=== PATIENT | female | born 1975 | race Caucasian/White ===

== ENCOUNTER 2016-08-08 01:10 | Emergency (ER) | payer BC, OTHER, SELFPAY ==
[2016-08-08] MEDS ORDERED: AMMONIA AROMATIC INHALANT (FLOOR STOCK) As Ordered ONE (04:13)
[2016-08-08] MEDS ORDERED: IBUPROFEN 800 MG TAB PO ONE (06:15)
[2016-08-08 06:56] VITALS: BP 103/68
--- NOTE | 2016-08-08 07:57 | REP ---
Left shoulder three views : There is no fracture or dislocation. Mineralization and joint spaces are normal. There are no calcifications or foreign bodies. Impression: Negative left shoulder . Signed by Merlin Zhou MD 08/08/2016 07:49 A
--- NOTE | 2016-08-08 07:59 | REP ---
Right foot four views : There is no fracture or dislocation. Mineralization and joint spaces are normal. There are no calcifications or foreign bodies. Impression: Negative right foot Calcaneal plantar and Achilles spurs are incidentally noted . Signed by Merlin Zhou MD 08/08/2016 07:50 A
== END 2016-08-08 07:02 | disposition home or self-care (01) ==
LOC: M ED 02:17
DX: S90.31XA Contusion of right foot, initial encounter (principal); S43.402A Unspecified sprain of left shoulder joint, initial encounter; X58.XXXA Exposure to other specified factors, initial encounter; Y92.89 Other specified places as the place of occurrence of the external cause; Y93.89 Activity, other specified; Y99.0 Civilian activity done for income or pay

== ENCOUNTER 2016-09-18 07:45 | Emergency (ER) | payer BC, OTHER ==
[~2016-09-18] VITALS: Ht 167.6 cm; Wt 94.8 kg
[2016-09-18] MEDS ORDERED: BUSP5TA PO (07:58)
[2016-09-18 09:00] LABS: BASO % 0.4 % (0.0-1.0); EOS # 0.1 K/mm3 (0.0-0.50); EOS % 1.1 % (0.0-3.0); LARGE UNSTAINED CELL # 0.1 K/mm3 (0.0-0.4); LARGE UNSTAINED CELL % 1.4 % (0.0-4.0); LYMPH # 1.7 K/mm3 (1.5-4.5); LYMPH % 22.2 % (24.0-44.0); MEAN CORPUSCULAR HEMOGLOBIN 31.3 pg (27.0-33.0); MEAN CORPUSCULAR HGB CONC 34.4 g/dl (32.0-36.5); MEAN CORPUSCULAR VOLUME 90.8 fl (80.0-96.0); MONO # 0.5 K/mm3 (0.0-0.8); MONO % 6.8 % (0.0-5.0); NEUTROPHILS % 68.1 % (36.0-66.0); PLATELET COUNT, AUTOMATED 257 k/mm3 (150-450); RED CELL DISTRIBUTION WIDTH 13.1 % (11.5-14.5); WHITE BLOOD COUNT 7.3 K/mm3 (4.0-10.0)
[2016-09-18 09:24] LABS: CONTROL LINE HCG INT CTR LINE PRESENT
[2016-09-18 09:26] LABS: ALBUMIN/GLOBULIN RATIO 1.21 (1.00-1.93); ALKALINE PHOSPHATASE 102 U/L (45-117); ALT/SGPT 22 U/L (12-78); AMYLASE 31 U/L (25-115); ANION GAP 8 MEQ/L (8-16); AST/SGOT 14 U/L (15-37); BILIRUBIN,DIRECT 0.2 MG/DL (0.0-0.2); BILIRUBIN,TOTAL 0.6 MG/DL (0.2-1.0); BLOOD UREA NITROGEN 11 MG/DL (7-18); CALCIUM LEVEL 8.6 MG/DL (8.5-10.1); CARBON DIOXIDE LEVEL 26 MEQ/L (21-32); CHLORIDE LEVEL 107 MEQ/L (98-107); CREATININE FOR GFR 0.76 MG/DL (0.55-1.02); GLOMERULAR FILTRATION RATE > 60.0 (>58); GLUCOSE, FASTING 97 MG/DL (70-105); POTASSIUM SERUM 3.9 MEQ/L (3.5-5.1); SODIUM LEVEL 141 MEQ/L (136-145); TOTAL PROTEIN 7.3 GM/DL (6.4-8.2)
[2016-09-18] MEDS ORDERED: ACETAMINOPHEN 325 MG TAB PO ONE (09:45)
[2016-09-18] MEDS ORDERED: ZOFR4TAB3 PO (09:48)
[2016-09-18 09:53] VITALS: BP 125/69
== END 2016-09-18 09:56 | disposition home or self-care (01) ==
LOC: M ED 08:58
DX: R19.7 Diarrhea, unspecified (principal); R11.0 Nausea; R10.12 Left upper quadrant pain; F41.9 Anxiety disorder, unspecified; Z90.79 Acquired absence of other genital organ(s); Z90.89 Acquired absence of other organs

== ENCOUNTER 2016-12-12 08:34 | Outpatient (CLI) | payer BC ==
[~2016-12-12] VITALS: Ht 167.6 cm; Wt 95.3 kg
[~2016-12-12 08:34] MED LIST: BUSP5TA PO; LEXA1TAB PO; LIDOCAINE 2% INJ 100 MG/5 ML SDV (FOR ANES.) As Ordered ONE; PROPOFOL 200 MG/20 ML VIAL As Ordered ONE; ZOFR4TAB3 PO
[2016-12-12] MEDS ORDERED: NS 1,000 ML IV SCH (08:45)
--- NOTE | 2016-12-12 09:28 | ROOR ---
Patient Name: Leticia Villalta Procedure Date: 12/12/2016 9:07 AM Date of : 1975 Age: 41 Room: [facility] Gender: Female Note Status: Finalized Procedure: Total Colonoscopy to Cecum + Cold Snare Polypectomy Indications: Screening in patient at increased risk: Colorectal cancer in mother before age 60 Providers: Collin Martin MD Referring MD: Maxi Rodriguez MD Requesting Provider: Medicines: Monitored Anesthesia Care Complications: No immediate complications. Procedure: Pre-Anesthesia Assessment: - The heart rate, respiratory rate, oxygen saturations, blood pressure, adequacy of pulmonary ventilation, and response to care were monitored throughout the procedure. The Colonoscope was introduced through the anus and advanced to the cecum, identified by appendiceal orifice and ileocecal valve. The colonoscopy was performed without difficulty. The patient tolerated the procedure well. The quality of the bowel preparation was good. Findings: The perianal and digital rectal examinations were normal. Non-bleeding internal hemorrhoids were found during retroflexion. The hemorrhoids were small and Grade I (internal hemorrhoids that do not prolapse). A small polyp was found in the cecum. The polyp was sessile. The polyp was removed with a cold snare. Resection and retrieval were complete. The exam was otherwise without abnormality on direct and retroflexion views. Impression: - Non-bleeding internal hemorrhoids. - One small polyp in the cecum, removed with a cold snare. Resected and retrieved. - The examination was otherwise normal on direct and retroflexion views. - The exam was otherwise normal to the cecum. Recommendation: - Patient has a contact number available for emergencies. The signs and symptoms of potential delayed complications were discussed with the patient. Return to normal activities tomorrow. Written discharge instructions were provided to the patient. - High fiber diet. - Discharge patient to home. - Continue present medications. - Await pathology results. - Telephone GI clinic for pathology results in 1 week. - Return to referring physician. - Repeat colonoscopy in 5 years for surveillance based on pathology results. - Return to referring physician. - The findings and recommendations were discussed with the patient's family. Collin Martin MD Collin Martin MD 12/12/2016 9:28:12 AM This report has been signed electronically. Number of Addenda: 0 Note Initiated On: 12/12/2016 9:07 AM Estimated Blood Loss: Estimated blood loss: none.
[2016-12-12 09:50] VITALS: BP 118/87
== END 2016-12-12 10:15 | disposition home or self-care (01) ==
LOC: M OPP 08:34
PROVIDERS: ATTEND Internal Medicine Gastroenterology
DX: Z12.11 Encounter for screening for malignant neoplasm of colon (principal); D12.0 Benign neoplasm of cecum; K64.0 First degree hemorrhoids; Z80.0 Family history of malignant neoplasm of digestive organs; M54.9 Dorsalgia, unspecified; G43.909 Migraine, unspecified, not intractable, without status migrainosus; F41.9 Anxiety disorder, unspecified; F32.9 Major depressive disorder, single episode, unspecified; R06.83 Snoring; Z98.1 Arthrodesis status; Z88.8 Allergy status to other drugs, medicaments and biological substances; Z79.899 Other long term (current) drug therapy

== ENCOUNTER 2017-07-29 19:43 | Emergency (ER) | payer BC ==
[2017-07-29 22:20] LABS: KETONE, URINE AUTO RFX NEGATIVE (NEGATIVE); LEUKOCYTE ESTERASE UR AUTO RFX NEGATIVE (NEGATIVE); MUCUS, URINE RFX SMALL (NEGATIVE); NITRITE, URINE AUTO RFX NEGATIVE (NEGATIVE); RBC, URINE AUTO RFX 0 /HPF (0-3); SPECIFIC GRAVITY UR AUTO RFX 1.023 (1.002-1.035); SQUAM EPITHELIAL CELL UR AURFX 1 /HPF (0-6); WBC, URINE AUTO RFX 1 /HPF (0-3)
[2017-07-29 23:01] LABS: BASO % 0.5 % (0.0-1.0); HEMOGLOBIN 13.2 g/dl (12.0-16.0); IMMATURE GRANULOCYTE % 0.2 % (0-3.0); LYMPH # 2.1 10^3/uL (1.5-4.5); LYMPH % 34.5 % (24.0-44.0); MEAN CORPUSCULAR HEMOGLOBIN 30.6 pg (27.0-33.0); MEAN CORPUSCULAR VOLUME 92.6 fl (80.0-96.0); MONO # 0.8 10^3/uL (0.0-0.8); MONO % 12.7 % (0.0-5.0); NEUTROPHILS # 3.2 10^3/uL (1.8-7.7); NEUTROPHILS % 52.1 % (36.0-66.0); PLATELET COUNT, AUTOMATED 267 10^3/uL (150-450); RED BLOOD COUNT 4.32 10^6/uL (4.00-5.40); WHITE BLOOD COUNT 6.1 10^3/uL (4.0-10.0)
[2017-07-29] MEDS: ONDANSETRON 4MG/2ML VIAL (J2405) IV (23:02)
[2017-07-29] MEDS: NS 1,000 ML IV (23:02)
[2017-07-29] MEDS: MORPHINE 4 MG/ML 1ML VIAL (J2270) IV (23:02)
[2017-07-29 23:08] LABS: URINE PREG TEST NEGATIVE (NEGATIVE)
[2017-07-29 23:09] LABS: CONTROL LINE UCG INT CTR LINE PRESENT
[2017-07-29 23:26] LABS: ALBUMIN/GLOBULIN RATIO 0.95 (1.00-1.93); ALKALINE PHOSPHATASE 93 U/L (45-117); ALT/SGPT 24 U/L (12-78); ANION GAP 6 MEQ/L (8-16); AST/SGOT 19 U/L (7-37); BILIRUBIN,TOTAL 0.4 MG/DL (0.2-1.0); BLOOD UREA NITROGEN 11 MG/DL (7-18); CALCIUM LEVEL 8.8 MG/DL (8.5-10.1); CARBON DIOXIDE LEVEL 28 MEQ/L (21-32); CHLORIDE LEVEL 106 MEQ/L (98-107); CREATININE FOR GFR 0.73 MG/DL (0.55-1.30); GLOMERULAR FILTRATION RATE > 60.0 (>58); GLUCOSE, FASTING 83 MG/DL (70-100); POTASSIUM SERUM 3.6 MEQ/L (3.5-5.1); SODIUM LEVEL 140 MEQ/L (136-145); TOTAL PROTEIN 8.2 GM/DL (6.4-8.2)
[2017-07-30] MEDS: KETOROLAC 30 MG/ML VIAL (J1885) IV (00:14)
[2017-07-30] MEDS ORDERED: ISOVUE-370 76% 100ML VIAL (Q9967) As Ordered (01:02)
[2017-07-30] MEDS: HYDROmorphone HCL 1 MG/ML SYRINGE (J1170) IV (01:08)
[2017-07-30] MEDS: NORCO 5/325MG TABLET (BULK FOR ED) PO (02:09)
== END 2017-07-30 02:10 | disposition home or self-care (01) ==
LOC: M ED 07-30 02:10
DX: N83.202 Unspecified ovarian cyst, left side (principal); Z79.899 Other long term (current) drug therapy; Z88.8 Allergy status to other drugs, medicaments and biological substances; J30.89 Other allergic rhinitis
CPT/HCPCS: J1170

== ENCOUNTER 2017-07-30 19:49 | Emergency (ER) | payer BC ==
[2017-07-30] MEDS: KETOROLAC 30 MG/ML VIAL (J1885) IV ×2 (20:15→20:30)
[2017-07-30] MEDS: NS 1,000 ML IV (20:15)
[2017-07-30] MEDS: ONDANSETRON 4MG/2ML VIAL (J2405) IV (20:29)
[2017-07-30 20:35] LABS: BASO % 0.3 % (0.0-1.0); HEMATOCRIT 39.5 % (36.0-47.0); HEMOGLOBIN 13.3 g/dl (12.0-16.0); IMMATURE GRANULOCYTE % 0.2 % (0-3.0); LYMPH # 2.1 10^3/uL (1.5-4.5); LYMPH % 35.4 % (24.0-44.0); MEAN CORPUSCULAR HEMOGLOBIN 31.3 pg (27.0-33.0); MEAN CORPUSCULAR HGB CONC 33.7 g/dl (32.0-36.5); MEAN CORPUSCULAR VOLUME 92.9 fl (80.0-96.0); MONO # 0.6 10^3/uL (0.0-0.8); MONO % 9.4 % (0.0-5.0); NEUTROPHILS # 3.2 10^3/uL (1.8-7.7); NEUTROPHILS % 54.7 % (36.0-66.0); PLATELET COUNT, AUTOMATED 289 10^3/uL (150-450); RED BLOOD COUNT 4.25 10^6/uL (4.00-5.40); RED CELL DISTRIBUTION WIDTH 12.9 % (11.5-14.5); WHITE BLOOD COUNT 5.9 10^3/uL (4.0-10.0)
[2017-07-30] MEDS: HYDROmorphone HCL 1 MG/ML SYRINGE (J1170) IV (20:44)
[2017-07-30 20:59] LABS: ALBUMIN 4.1 GM/DL (3.2-5.2); ALBUMIN/GLOBULIN RATIO 1.05 (1.00-1.93); ALKALINE PHOSPHATASE 101 U/L (45-117); ALT/SGPT 25 U/L (12-78); AMYLASE 44 U/L (25-115); ANION GAP 7 MEQ/L (8-16); AST/SGOT 21 U/L (7-37); BILIRUBIN,DIRECT < 0.1 MG/DL (0.0-0.2); BILIRUBIN,TOTAL 0.3 MG/DL (0.2-1.0); BLOOD UREA NITROGEN 9 MG/DL (7-18); CALCIUM LEVEL 8.6 MG/DL (8.5-10.1); CARBON DIOXIDE LEVEL 28 MEQ/L (21-32); CHLORIDE LEVEL 106 MEQ/L (98-107); CREATININE FOR GFR 0.73 MG/DL (0.55-1.30); GLOMERULAR FILTRATION RATE > 60.0 (>58); GLUCOSE, FASTING 89 MG/DL (70-100); LIPASE 76 U/L (73-393); POTASSIUM SERUM 4.1 MEQ/L (3.5-5.1); SODIUM LEVEL 141 MEQ/L (136-145)
== END 2017-07-30 22:10 | disposition home or self-care (01) ==
LOC: M ED 19:49
DX: R10.11 Right upper quadrant pain (principal); R10.31 Right lower quadrant pain; M54.5 Low back pain; F33.9 Major depressive disorder, recurrent, unspecified; Z79.899 Other long term (current) drug therapy; Z88.8 Allergy status to other drugs, medicaments and biological substances; J30.89 Other allergic rhinitis; Z87.891 Personal history of nicotine dependence
CPT/HCPCS: J1170